=== PATIENT | female | born 1985 | race Caucasian/White ===

== ENCOUNTER 2017-07-04 17:47 | Observation (INO) | payer MEDICAID ==
[~2017-07-04] VITALS: Ht 162.6 cm; Wt 60.3 kg
[2017-07-04] MEDS ORDERED: MORPHINE SULFATE 4 MG/ML CPJ (NOT FOR IM USE) IV STA (18:12)
[2017-07-04] MEDS ORDERED: SODIUM CHLORIDE 0.9% 1,000 ML IV ONE ×3 (18:12→22:07)
[2017-07-04] MEDS ORDERED: ONDANSETRON HCL 4MG/2ML VIAL IV STA (18:12)
[2017-07-04 18:34] LABS: HEMATOCRIT. 29.3 % (36.0-48.0); HEMOGLOBIN. 9.8 g/dL (12.0-16.0); MEAN CORPUSCULAR HEMOGLOBIN 29.1 pg (28.0-32.0); MEAN CORPUSCULAR VOLUME 87.2 fL (81.0-99.0); RED BLOOD CELL COUNT 3.36 mill/uL (4.2-5.4); RED CELL DISTRIBUTION WIDTH 13.6 % (11.6-14.6)
[2017-07-04 18:38] LABS: PROTHROMBIN TIME 10.6 sec (9.4-11.6)
[2017-07-04 18:46] LABS: PLATELET 236 x1000/uL (130-400)
[2017-07-04 18:47] LABS: MEAN PLATELET VOLUME 9.7 fl (7.4-10.4)
[2017-07-04 18:53] LABS: CARBON DIOXIDE 19 mEq/L (21-32); CHLORIDE 116 mEq/L (98-107); TROPONIN I < 0.02 ng/mL (0.00-0.04)
[2017-07-04] MEDS ORDERED: MORPHINE SULFATE 2 MG/ML CPJ (NOT FOR IM USE) IV ONE (18:57)
[2017-07-04 19:05] LABS: B-HCG QUANTITATIVE 8230 mIU/mL (<3)
[2017-07-04] MEDS ORDERED: POTASSIUM CHLORIDE 20MEQ TABLET SR PO ONE (19:15)
[2017-07-04] MEDS ORDERED: KCL 20MEQ/100ML PREMIX 100 ML IV ONE (19:15)
[2017-07-04 19:44] LABS: CLARITY URINE TURBID (CLEAR); COLOR URINE RED (YELLOW); GLUCOSE URINE NEGATIVE (NEGATIVE); KETONES URINE NEGATIVE (NEGATIVE); LEUKOCYTE ESTERASE URINE 2+ (NEGATIVE); NITRITE URINE POSITIVE (NEGATIVE); OCCULT BLOOD URINE 2+ (NEGATIVE); PROTEIN URINE 3+ (NEGATIVE); SPECIFIC GRAVITY URINE 1.022 (1.005-1.030); UROBILINOGEN URINE 0.2 E.U./dL (0.2-1.0)
[2017-07-04 20:03] LABS: PLATELET ESTIMATE NORMAL
[2017-07-04 21:41] LABS: BASOPHILS % 0.4 % (0.0-2.0); EOSINOPHILS % 0.1 % (0.0-5.0); HEMATOCRIT. 24.8 % (36.0-48.0); HEMOGLOBIN. 8.2 g/dL (12.0-16.0); LYMPHOCYTES % 12.9 % (20.0-50.0); MEAN CORPUSCULAR HEMOGLOBIN 28.8 pg (28.0-32.0); MEAN CORPUSCULAR VOLUME 87.8 fL (81.0-99.0); MEAN PLATELET VOLUME 8.7 fl (7.4-10.4); MONOCYTES % 2.6 % (2.0-8.0); PLATELET 246 x1000/uL (130-400); RED BLOOD CELL COUNT 2.83 mill/uL (4.2-5.4); RED CELL DISTRIBUTION WIDTH 13.3 % (11.6-14.6)
[2017-07-04] MEDS ORDERED: MORPHINE SULFATE 4 MG/ML CPJ (NOT FOR IM USE) IV ONE (21:45)
[2017-07-04] MEDS ORDERED: DEXT 5%/LR + PITOCIN 20UNITS/L 1,000 ML IV ONE (21:45)
[2017-07-04] MEDS ORDERED: ONDANSETRON HCL 4MG/2ML VIAL IV ONE (21:45)
[2017-07-04] MEDS ORDERED: MISOPROSTOL 200MCG TABLET PO ONE (22:30)
[2017-07-04] MEDS ORDERED: CEFTRIAXONE 1 G PREMIX 50 ML IV ONE (23:00)
[2017-07-05] MEDS ORDERED: LIDOCAINE HCL 1% 20ML VIAL (Pyxis) INJ ONE (00:36)
[2017-07-05] MEDS ORDERED: DEXAMETHASONE 4MG/ML 1ML VIAL ONE (00:36)
[2017-07-05] MEDS ORDERED: CEFAZOLIN SODIUM 1000MG/VIAL ONE (00:36)
[2017-07-05] MEDS ORDERED: ROCURONIUM BROMIDE 10MG/ML VIAL 5ML IV ONE (00:36)
[2017-07-05] MEDS ORDERED: PROPOFOL 200MG/20ML VIAL IV ONE (00:36)
[2017-07-05] MEDS ORDERED: SODIUM CHLORIDE 0.9% 10ML VIAL ONE ×2 (00:36→00:42)
[2017-07-05] MEDS ORDERED: EPHEDRINE SULFATE 50MG/ML VIAL ONE (00:42)
[2017-07-05] MEDS ORDERED: ONDANSETRON HCL 4MG/2ML VIAL IV PRN (01:15)
[2017-07-05] MEDS ORDERED: KETOROLAC 30MG/ML VIAL IV NR (01:15)
[2017-07-05] MEDS ORDERED: METHYLERGONOVINE MALEATE 0.2 MG/ML ONE (01:16)
[2017-07-05] MEDS ORDERED: MORPHINE SULFATE 2 MG/ML CPJ (NOT FOR IM USE) IV PRN (02:15)
[2017-07-05 02:40] VITALS: BP 95/59
[2017-07-05 04:00] VITALS: BP 100/60
[2017-07-05] MEDS ORDERED: METHYLERGONOVINE MALEATE 0.2 MG/ML IM NR (04:13)
[2017-07-05] MEDS ORDERED: DEXT 5%/0.45% NACL KCL 20MEQ/L 1,000 ML IV SCH (06:00)
[2017-07-05 06:18] LABS: HEMATOCRIT. 24.9 % (36.0-48.0); HEMOGLOBIN. 8.4 g/dL (12.0-16.0); MEAN CORPUSCULAR HEMOGLOBIN 29.5 pg (28.0-32.0); MEAN CORPUSCULAR VOLUME 87.5 fL (81.0-99.0); MEAN PLATELET VOLUME 8.9 fl (7.4-10.4); PLATELET 192 x1000/uL (130-400); RED BLOOD CELL COUNT 2.85 mill/uL (4.2-5.4)
[2017-07-05 08:00] VITALS: BP 98/66
[2017-07-05 08:19] LABS: PLATELET ESTIMATE NORMAL
[2017-07-05] MEDS ORDERED: NITROFURANTOIN 100MG M/M CAPSULE PO SCH (09:00)
[2017-07-05 12:00] VITALS: BP 101/64
[2017-07-05 13:19] VITALS: BP 104/60
[2017-07-05] MEDS ORDERED: ACETAMINOPHEN 325MG TABLET PO PRN (13:30)
== END 2017-07-05 16:55 | disposition home or self-care (01) ==
LOC: ER 19:50 → ENRESERV 21:23 → CANRESERV 21:23 → 6EST 22:18 → INTOOBSV 22:18 → EDBEDREQ 22:22 → EDBEDREQSVC 22:22 → CANRESERV 23:08 → ENRESERV 23:08
PROVIDERS: ADMIT Specialist; ATTEND Specialist
DX: O03.4 Incomplete spontaneous abortion without complication (principal); N39.0 Urinary tract infection, site not specified; D64.9 Anemia, unspecified; E87.6 Hypokalemia; I95.9 Hypotension, unspecified
CPT/HCPCS: 36415; 36430; 59812; 76801; 76817; 80053; 81001; 83690; 84484; 84702; 85025; 85610; 86850; 86900; 86901; 86920; 88305; 93005; 96365; 96366; 96367; 96375; A4216; C1893; G0378; J0171; J0690; J1100; J1885; J2210; J2270; J2405; J2590; J3480; J3490; J7030; J7040; P9016; J2704